=== PATIENT | male | born 1960 | race Caucasian/White ===

== ENCOUNTER 2019-05-25 06:03 | Inpatient (IN) | payer OTHER, SELFPAY ==
[2019-05-21 09:55] VITALS: BMI 31.2
[2019-05-25] VITALS (21 sets, daily range): BP systolic 98–135; BP diastolic 49–87; PULSE 62–124; RESP 8–20; TEMP 36.6–37.3; O2SAT 94–98; BMI 30.4
--- NOTE | 2019-05-25 | DI.RAD.S_ITS ---
PROCEDURE: XR LUMBAR SPINE 2-3V INDICATIONS: L3-4, L4-5, L5-S1 TLIF W/ POSTERIOR INSTRUMENTATION TECHNIQUE: 2 operative views of the lumbar spine were acquired. COMPARISON: None. FINDINGS: AP and lateral operative films demonstrate posterior o the pedicles grew fixation and interbody cage material placement at L3-S1. There is no radiographic evidence of complications. IMPRESSION: Operative imaging utilized during lumbar fixation. Dictated by: Eddie Wang M.D. on 05/25/2019 at 12:54 Approved by: Eddie Wang M.D. on 05/25/2019 at 13:00
[2019-05-25] MEDS: LACTATED RINGERS 1,000 ML 42 ML IV ×3 (06:50→11:12)
--- NOTE | 2019-05-25 07:43 | PM.PREOP ---
Pre-operative Note Interval Note History & Physical reviewed/Exam performed by Physician: Yes Changes to H&P: No
[2019-05-25] MEDS: CEFAZOLIN 2 GM/100 ML FROZ.PIGGY IV ×3 (07:55→19:14)
[2019-05-25] MEDS: BUPIVACAINE 0.25% W/ EPI 30 ML VIAL INJ (08:30)
[2019-05-25] MEDS: BUPIVACAINE LIPOSOME 266 MG/20 ML VIAL INJ (08:32)
--- NOTE | 2019-05-25 08:35 | SUR.OPER ---
Prone on spine table, head in foam head support, padded chest and pelvic supports, gel pad at knees, lower legs supported by pillows; nipples, genitalia and toes free of pressure, arms secured on foam padded arm boards at <90 degrees abduction. Tape over blanket at thigh secured to table.
--- NOTE | 2019-05-25 13:01 | PM.OP.1 ---
Operative Date/Time/Diagnoses Date of procedure: 05/25/19 Time of procedure: 08:01 Pre-op diagnosis: 1. L3-4, L4-5, L5-S1 spinal stenosis 2. Lumbar post laminectomy syndrome 3. L3-4, L4-5, L5-S1 spondylosis with radiculopathy Post-op diagnosis: same Procedure & Clinicians Procedure: 1. L3-4, L4-5, L5-S1 Postero-lateral and posterior interbody fusion 2. L3-4, L4-5, L5-S1 interbody cage placement. 3. L3-4, L4-5, L5-S1 decompressive laminectomy with bilateral facetecomies 4. L3-4, L4-5, L5-S1 Posterior segmental instrumentation 5. [place] of bone marrow from iliac crest 6. Utilization of microsurgical technique and operating microscope Same procedure as scheduled: Yes Indications: Patient has been having chronic back pain and worsening lumbar radiculopathy. Patient failed multiple conservative management with worsening pain weakness and numbness in her lower extremity. Patient has been having difficulty performing activity of daily living. After discussing risks benefits of treatment options, patient elected proceed with surgery. Surgeon: Monserrat Srivastava [facility] Housekeeper: Lynette Velasquez Click Yes if Unassisted: No Anesthesia Type: General Operative Notes Closure Type: primary Specimen(s): none sent Prosthetic devices, grafts, tissues, transplants, or devices: Globus revolve, Rise cages Applied: catheter Estimated Blood Loss (mL): 600 Blood products transfused: none Procedure in detail: Patient was seen in the preoperative area. Risks and benefits of the surgery was discussed with the patient. Informed consent was obtained from the patient and placed in the chart. Surgical site was marked. Patient was taken to the operative room. General anesthesia was administered. Prophylactic antibiotic was given to the patient less than 30 min before the incision was made. Patient was placed into a prone position on the [place] table. Patient's back was then prepped and draped in the sterile fashion. Time-out was performed at this time. Using AP and lateral C-arm imaging the interval between L3-S1 was identified and marked on patient's back. A 3 inch incision 2 in from midline was made on the right side first. The fascia was incised in line with skin incision. Globus MARS retractors was placed inside the incision and docked onto the L3, L4 and L5 lamina. Using microsurgical technique and operating microscope, a L3, L4 and L5 laminectomy and L3-4, L4-5 L5-S1 facetectomy was performed using a [place] rongeur. The disc space at L3-4, L4-5, L5-S1 was identified. And a total diskectomy was performed at L3-4, L4-5, L5-S1 level. The endplates were decorticated using a rasp and shaver. The total diskectomy and decortication was performed at L3-4, L4-5, L5-S1 level in order to to accomplish a L3-4, L4-5, L5-S1 fusion. The local bone from the laminectomy and facetectomy was saved for local bone grafting. After the total diskectomy and decortication was completed, Bio4 bone graft material was combined with local bone that was harvested earlier. At this time, a separate skin is incision was made over the iliac crest. A Jamshidi needle was inserted into the iliac crest through a separate skin incision. 5 cc of bone marrow aspiration was obtained through the separate skin incision using a Jamshidi needle from the iliac crest. The bone marrow aspiration was combined with local bone and the Bio4 bone grafting material. The bone grafting material was placed into the L3-4, L4-5, L5-S1 interbody space along with three cages, one expandable cage at each level. The cages were expanded to their maximum height using the torque limiting screwdriver. At this time a mirror image incision was made on the left side. The fascia was incised in line with the skin incision. Globus MARS retractor was inserted and docked onto the L3-4, L4-5, L5-S1 posterolateral gutter. Using the power drill, posterior-lateral decortication was performed at L3-4, L4-5, L5-S1 level until bleeding cortical bone was identified. The remaining bone grafting material along with DBM was placed into the L3-4, L4-5 L5-S1 posterior lateral gutter he order to accomplish posterolateral fusion at the L3-4, L4-5 L5-S1 levels. Using the double C-arm technique, pedicle screws were placed into the L3, L4, L5, S1 pedicles bilaterally. This was done by placing the Jamshidi needle into the pedicles, then placing the guidewires over the Jamshidi needle, and finally placing the cannulated screws over the guidewires bilaterally. After the pedicle screws were placed, 2 titanium rods was locked into the heads of the pedicle screws using locking caps and torque limiting screwdriver. Total 8 pedicles screws were placed. After all the hardware was placed, and confirmed with AP and lateral C-arm imaging, the wound was then irrigated with sterile normal saline and packed with Ray-Sonia gauze for 3 min to accomplish hemostasis. After the gauze was removed the deep fascia was closed with #1 Vicryl suture. The subcutaneous layer was closed with 2-0 Vicryl. The skin was closed with skin alec. Patient tolerated the procedure well. There were no complications. Complications: none Post-operative Condition: stable Disposition: PACU Plan for aftercare: Admit to inpatient hospital
[2019-05-25] MEDS: HYDROMORPHONE 2 MG INJ 0.5 MG IV ×3 (13:33→13:56)
--- NOTE | 2019-05-25 13:47 | SUR.PHASEI ---
1333 Rx for pain, elevated heart rate and glucose reported to Dr. Dias -- stated to continue treating pain, will observe glucose, no orders to treat. Pt. trying to sit up, complaining of I need to pee repeatedly. Good LE strength, moving in bed, frequent reminders to keep body in alignment and not to twist. Put on bedpan for need to have a BM
--- NOTE | 2019-05-25 13:54 | SUR.PHASEI ---
No BM, removed bedpan, repositioned in the bed. Pain level has improved, would like more pain control
[2019-05-25] MEDS: LORazepam 2 MG/ML INJ 0.25 MG IV (13:59)
[2019-05-25] MEDS: fentaNYL 100 MCG/2 ML INJ 50 MCG IV (14:21)
[2019-05-25] MEDS: ONDANSETRON 4 MG/2 ML INJ IV (14:21)
--- NOTE | 2019-05-25 14:37 | SUR.PHASEI ---
Pt resting calmly, oriented, diaphoresis/cool washcloth to the head. C/o numbness in right foot, which was reported pre-op. Pt states that the numbness is about equal to what he had pre-op. Denies any pain other than back and irritation from jenkins catheter. He has maintained this throughout his awake PACU stay. See emar for nausea Rx, states that his nausea has improved significantly. Pain currently 5-6/10
--- NOTE | 2019-05-25 15:12 | SUR.PHASEI ---
1440 Pain improving although patient wishes that it were less, understands that he had a big surgery and that he will have pain, pleasant, cooperative, appreciative. diaphoretic, denies any chest pain/pressure period of diaphoresis, states that he 'runs warm.' Cool washclothes have helped his comfort level. Dressing remains CDI, Stable to prepare for transfer.
--- NOTE | 2019-05-25 15:14 | SUR.PHASEI ---
4850 to room 204, family in the room, pt talking/joking with them. Clothing bag to room, report updated with 2 RNs and ASSISTANT BRANCH MANAGER. VSS. Pt asking for jenkins to come out; nurse explained that she will have PT eval whether he can be out of bed and that he may need to use a urinal.
[2019-05-25] MEDS: OXYCODONE IR 10 MG TABLET PO ×2 (16:03→20:29)
[2019-05-25] MEDS: SODIUM CHLORIDE 0.9% 1,000 ML 100 ML IV (16:04)
--- NOTE | 2019-05-25 16:33 | PC.ADMIT ---
Admitted to , arrived on the unit via bed from PACU. Pain 03/05, shift RN medicated. Dick patent. IV fluids setup and infusing w/o complications. Has history of right foot drop. Physical therapy in room assessing patient and stood him up to bedside. Oriented to room/call light use. Bed alarm on, moderate fall risk. Family present at bedside. Home medications sent home with family member. [address] Admission Note: The patient,Claus Palma,58 y/o, was given written information regarding hospital policies, unit procedures and contact persons. Patient's smoking status: Former smoker. Vital Signs - 8 hr 05/25/19 13:06 05/25/19 13:12 05/25/19 13:20 Temperature 97.9 F Pulse Rate 99 H 118 H 124 H Respiratory Rate 14 13 14 Blood Pressure 122/67 131/72 98/63 Pulse Oximetry 94 95 95 05/25/19 13:25 05/25/19 13:30 05/25/19 13:35 Temperature Pulse Rate 116 H 123 H 110 H Respiratory Rate 8 L 14 9 L Blood Pressure 110/67 110/53 L 109/68 Pulse Oximetry 97 98 97 05/25/19 13:45 05/25/19 14:15 05/25/19 14:30 Temperature Pulse Rate 113 H 103 H 99 H Respiratory Rate 13 11 L 9 L Blood Pressure 104/54 L 114/71 114/67 Pulse Oximetry 95 94 97 05/25/19 14:45 05/25/19 14:55 05/25/19 15:05 Temperature 98.7 F Pulse Rate 98 H 96 H 99 H Respiratory Rate 11 L 14 20 Blood Pressure 118/72 119/73 117/49 L Pulse Oximetry 96 98 95 05/25/19 15:40 05/25/19 16:06 Temperature 98.9 F Pulse Rate 91 H 88 Respiratory Rate 19 18 Blood Pressure 129/82 122/69 Pulse Oximetry 95 97
--- NOTE | 2019-05-25 16:58 | PT.IIE ---
Current Diagnoses Foot drop, right foot (05/25/19) Spinal stenosis, lumbar region without neurogenic claudication (05/25/19) Postlaminectomy syndrome, not elsewhere classified (05/25/19) Surgery Performed Operation Date: 05/25/19 07:45 Actual Procedures p L3-4,L4-5,L5-S1 TLIF with posterior intrumentation - Monserrat Srivastava MD Surgical History (Last Updated 05/21/19 @ 10:38 by Kerry Ledbetter RN) Hx of discectomy (Acute 11/19/14) Hx of discectomy (Acute ~2001) Hx of right knee surgery (Acute ~1988) Medical History (Last Updated 05/21/19 @ 10:38 by Kerry Ledbetter RN) Anxiety (Acute) Arthritis (Acute) Diabetes (Acute) HLD (hyperlipidemia) (Acute) HTN (hypertension) (Acute) Neuropathy (Acute) Psoriasis (Acute) Sciatica (Acute) Physical Therapy Inpatient Evaluation/Re-Eval M1 PT/OT-IP Prior Functional Status Start: 05/25/19 16:58 Freq: NEEDED Status: Active Protocol: Document 05/25/19 16:58 DLM (Rec: 05/25/19 17:12 DLM [email or web address]) Medical Review Prior Functional Status Medical History Reviewed Yes Diet/Fluid Consistency Regular Communication WNL Mobility and Gait Independent without a device, community distances, occasional use of a cane when back pain or LE was too severe before sx Activities of Daily Living and IADL's Independent Social History Household Members spouse Living Arrangements House Number of Floors (Floors) One Floor Number of Stairs To Enter/Railing? 4 with bilateral rails Home Environment Standard Height Toilet,Walk in Shower,Tub/Shower Home Equipment Straight Cane M2 PT-IP Current Condition Start: 05/25/19 16:58 Freq: NEEDED Status: Active Protocol: Document 05/25/19 16:58 DLM (Rec: 05/25/19 17:12 DLM [email or web address]) Physical Therapy Current Condition Current Condition Evaluation Date 05/25/19 Treatment Diagnosis L3-S1 TLIF, right foot drop, impaired mobility/gait Onset Date 05/25/19 Precautions Lumbar Precautions Log Roll,No Twisting,Limit Bending,Lifting Restriction of 10 lbs,Gait Belt above Incisional Area M3 PT-IP Subjective Start: 05/25/19 16:58 Freq: NEEDED Status: Active Protocol: Document 05/25/19 16:58 DLM (Rec: 05/25/19 17:12 DLM [email or web address]) Subjective Physical Therapy Visit Type Type Initial Evaluation Visit Start Time 16:15 Visit Stop Time 16:58 Total Visit Minutes 43 Number of STAFF RADIOLOGIST Visits 0 Physical Therapy Visit Comments Patient Comments He wants to get up and he does not like the catheter Patient Goals get better so he can go home Therapy Pain Assessment Pain When Pain Assessed At Rest Pain Present Pain Present Pain Reported Location Lower Back Intensity 4 Scale Used Numeric (1 - 10) Description Aching Pain Behaviors Guarding Pain Management Techniques Re-positioning M4 PT-IP Mobility and Gait Start: 05/25/19 16:58 Freq: NEEDED Status: Active Protocol: Document 05/25/19 16:58 DLM (Rec: 05/25/19 17:12 DL [email or web address]) PT-Bed Mobility Assessment Rolling Type of Rolling Log Rolling Level of Assist Standby Assistance Supine to Sit Supine to Sit Standby Assistance Sit to Supine Sit to Supine Standby Assistance Scooting Scooting to Edge of Bed Standby Assistance PT-Transfer Assessment Sit to and From Stand Sit to and from Stand Contact Guard Assistance,Use of Upper Extremities Equipment Transfer Assistive Device Gait Belt,Front Wheeled Walker Comments Mobility Comments standing at edge of bed with FWW, he describes right LE as feeling weak Gait Assessment Gait Gait Assistance Required: Contact Guard Assist Distance (Feet) 2 Assistive Devices Assistive Device Gait Belt,Front Wheeled Walker Factors Limiting Gait Function Factors Limiting Gait Function Decreased Activity Tolerance, Decreased Strength,Pain Comments Gait Comments side-stepping at edge of bed with fWW PT-Balance Assessment Sitting Balance and Reactions Static Sitting Balance Ability Good Dynamic Sitting Balance Ability Good Standing Balance and Reactions Static Standing Balance Ability Good Dynamic Standing Balance Ability Fair Device Used FWW M5 PT-IP Objective Assessments Start: 05/25/19 16:58 Freq: NEEDED Status: Active Protocol: Document 05/25/19 16:58 DLM (Rec: 05/25/19 17:12 DLM [email or web address]) Orientation Orientation/Cognition Level of Alertness Alert Orientation Name,Age,Birthday,Month,Date, Year,Day of Week,Place, Situation Language Function Ability No Deficits Noted Safety Awareness Understands Safety Issues Memory Description No Deficits Noted Gross Range of Motion Upper Extremity ROM Assessment Within Functional Limits Lower Extremity ROM Assessment Within Functional Limits Impairments trunk ROM limited by post-op restrictions and pain Strength Upper Extremity Strength Assessment Within Functional Limits Lower Extremity Strength Assessment Right Impaired Ankle DF 2+/5 Comments Strength Comments pt reports right LE weakness with weight bearing Coordination Assessment Gross Coordination Gross Coordination WNL Sensation Assessment Sensation Gross Sensation Right LE Impaired Sensation Description Numbness Comments Sensation Comments right foot, right lateral distal LE up to knee Muscle Tone Muscle Tone WNL Yes M6 PT-IP Treatment Start: 05/25/19 16:58 Freq: NEEDED Status: Active Protocol: Document 05/25/19 16:58 DLM (Rec: 05/25/19 17:12 DLM [email or web address]) Physical Therapy Treatment Education Education Provided Precautions,Post-Op Packet, Safety M7 PT-IP Assessment and Plan Start: 05/25/19 16:58 Freq: NEEDED Status: Active Protocol: Document 05/25/19 16:58 DLM (Rec: 05/25/19 17:12 DLM [email or web address]) PT Summary Assessment and Plan Potential Rehabilitation Potential Good Status of Condition at Evaluation Evolving Summary Impairments Pain,ROM,Strength,Balance,Bed Mobility,Transfers,Gait, Activity Tolerance Assessment Summary Mr Palma is alert and eager to get up today. Pt stood edge of bed with fWW and took side- steps at edge of bed. He describes right LE weakness in standing. Right foot drop continues post-op. Pt educated in his spine precautions and he needs reminders to use them functionally. Pt returned to supine to rest after activity today. His is present for therapy today. Anticipate pt will need equipment for home use to assist in his recovery. Will plan for discharge home with his if he continues to progress well. Goals Bed Mobility Goal Independent Transfer Goal Independent,Front Wheeled Walker Gait Goal Independent,Front Wheel Walker Gait Distance 100 feet Other Goals up and down 4 steps with rail and cane and SBA Days to Meet Goals 3 Frequency of Treatment Frequency Of Treatment Twice a Day Treatment Plan Physical Therapy Treatment Plan Bed Mobility Training,Transfer Training,Gait Training, Therapeutic Exercise,Balance Retraining,Post Op Education, Discharge Planning Recommendations To Nursing Amount of Assist Needed 1 Person Assist Discharge Recommendations PT Discharge Recommendations Home with Assistance Equipment Needed for Home Before FWW, raised commode with UE Discharge rails, shower seat or tub bench
[2019-05-25] MEDS: hydrOXYzine pamoate 25 MG CAPSULE PO ×2 (17:16→22:06)
[2019-05-25] MEDS: HYDROMORPHONE 0.5 MG INJ IV (17:16)
[2019-05-25] MEDS: ACETAMINOPHEN 325 MG TABLET 650 MG PO (17:17)
[2019-05-25] MEDS: NICOTINE 21 MG PATCH TOP (17:59)
[2019-05-25] MEDS: CITALOPRAM 20 MG TABLET 40 MG PO (20:23)
[2019-05-25] MEDS: ATORVASTATIN 20 MG TABLET PO (20:26)
[2019-05-25] MEDS: DOCUSATE 100 MG CAPSULE PO (20:26)
[2019-05-25] MEDS: SENNOSIDES 8.6 MG TABLET 17.2 MG PO (20:26)
[2019-05-25] MEDS: LISINOPRIL 10 MG TABLET PO (20:26)
[2019-05-25] MEDS: METOPROLOL ER 50 MG TABLET PO (20:26)
[2019-05-25] MEDS: METFORMIN HCL 500 MG TABLET 1000 MG PO (20:29)
[2019-05-25] MEDS: NORTRIPTYLINE HCL 25 MG CAPSULE 50 MG PO (20:34)
--- NOTE | 2019-05-25 21:52 | PC.NURSE ---
Pt is A and O x 4, VSS. He reports his pain to be 4-8/10, requesting pain medications as available. Pt is eating and drinking, + BT and voiding clear yellow into catheter. Tolerating IVF and ABOs well. SCDs on.
[2019-05-26] VITALS (8 sets, daily range): BP systolic 106–146; BP diastolic 61–74; PULSE 76–83; RESP 16–20; TEMP 36.6–37.3; O2SAT 96–99
[2019-05-26] MEDS: OXYCODONE IR 10 MG TABLET PO ×7 (00:44→23:41)
[2019-05-26] MEDS: hydrOXYzine pamoate 25 MG CAPSULE PO ×4 (01:31→23:41)
[2019-05-26] MEDS: HYDROMORPHONE 0.5 MG INJ IV ×2 (01:31→06:05)
--- NOTE | 2019-05-26 01:32 | PC.NURSE ---
Patient is grimacing, unable to move, swearing and reporting pain in his back at an 8 (post 10 mg Oxy). Will administer PRN Dilaudid 0.5mg IV and hydrooxyzine pamoate 25 mg PO and continue to monitor.
[2019-05-26] MEDS: CEFAZOLIN 2 GM/100 ML FROZ.PIGGY IV (04:03)
[2019-05-26 05:44] LABS: Hematocrit 32.3 % (41-53)
--- NOTE | 2019-05-26 09:10 | CM.DANOTE ---
DCP: Case received, EMR reviewed and met with patient. Introduced self and role. Was able to meet with patient and obtain baseline health information. DCP assessment/template completed with information currently available. Patient is a 58 year old male who admitted yesterday afternoon to the care of the orthopedic team. PCP: Dr. Cardenas. Payer: confirmed: [employer]. Patient came to the hospital for a surgical procedure. He had L3-4, 4-5, 5-S1 postero-lateral fusion. Met with patient in his room, awake and laying in bed. Alert and oriented. He resides with his , Jamila, and also has family available to help him when he goes home. Confirmed that Jamila is his of 20 years. He has been using a cane for home use when needed. He used to work at [employer]. Patient has not yet been up with P.T. P: DCP to continue to follow. Patient wishes to go home when he is medically stable. Will see how he does with the physical therapy team. Kim Ye RN/Topology Teacher
--- NOTE | 2019-05-26 09:16 | P.PN_ITS ---
Subjective Subjective Date Patient Seen: 05/26/19 Time Patient Seen: 09:16 Interval history: Patient's pain is moderate to severe. Patient's pain is well controlled with current meds. Denies fever chills. No nausea vomiting. Exam Vital Signs (past 8 hours): - 05/26/19 03:28 05/26/19 08:00 Temperature 98.5 F 98.9 F Pulse Rate 80 76 Respiratory Rate 16 18 Blood Pressure 107/72 117/62 Pulse Oximetry 98 99 Oxygen Delivery Method Room Air Oxygen Flow Rate 0 Narrative Exam Narrative: Pleasant 58-year-old male resting comfortably in bed in no apparent distress. Motor functions intact bilateral lower extremities. Sensation mildly diminished along the right lateral foot and cedillo otherwise intact to light touch. Sensation grossly intact to light touch left lower extre mity. Both legs are warm and dry. Minimal drainage on the left dressing otherwise both dressings are clean dry and intact. Objective Labs Result Diagrams: 05/26/19 05:20 Labs: Laboratory Results - last 24 hr 05/26/19 05:20 Hgb 11.0 L Hct 32.3 L Assessment & Plan Post-op Postoperative Procedures: Procedures Operation Date: 05/25/19 07:45 Actual Procedures Side Surgeon p L3-4,L4-5,L5-S1 TLIF with posterior intrumentation Monserrat Srivastava MD Postop day 1. Patient to mobilize with physical therapy. Continue to work on pain control. Possible discharge home in the next 1-2 days.
[2019-05-26] MEDS: DOCUSATE 100 MG CAPSULE PO ×2 (09:23→21:09)
[2019-05-26] MEDS: MAGNESIUM HYDROXIDE 30 ML UDC PO (09:24)
[2019-05-26] MEDS: NICOTINE 21 MG PATCH TOP (10:12)
--- NOTE | 2019-05-26 11:20 | PT.IPTN ---
Current Diagnoses Foot drop, right foot (05/25/19) Spinal stenosis, lumbar region without neurogenic claudication (05/25/19) Postlaminectomy syndrome, not elsewhere classified (05/25/19) Surgery Performed Operation Date: 05/25/19 07:45 Actual Procedures p L3-4,L4-5,L5-S1 TLIF with posterior intrumentation - Monserrat Srivastava MD Physical Therapy Treatment Note M2 PT-IP Current Condition Start: 05/25/19 16:58 Freq: NEEDED Status: Active Protocol: Document 05/25/19 16:58 DLM (Rec: 05/25/19 17:12 DLM [email or web address]) Physical Therapy Current Condition Current Condition Evaluation Date 05/25/19 Treatment Diagnosis L3-S1 TLIF, right foot drop, impaired mobility/gait Onset Date 05/25/19 Precautions Lumbar Precautions Log Roll,No Twisting,Limit Bending,Lifting Restriction of 10 lbs,Gait Belt above Incisional Area M3 PT-IP Subjective Start: 05/25/19 16:58 Freq: NEEDED Status: Active Protocol: Document 05/26/19 11:20 GGD (Rec: 05/26/19 12:20 GGD [email or web address]) Subjective Physical Therapy Visit Type Type Treatment Note Visit Start Time 10:57 Visit Stop Time 11:22 Total Visit Minutes 25 Number of REFRACTORY MIXER Visits 1 Physical Therapy Visit Comments Patient Comments Pt states he is tired after all the activity this morning. Therapy Pain Assessment Pain When Pain Assessed At Rest Pain Present Pain Present Pain Reported Location Lower Back Intensity 6 Scale Used Numeric (1 - 10) Pain Management Techniques Modification of Treatment,Re- positioning,Timing of Activity with Medications M4 PT-IP Mobility and Gait Start: 05/25/19 16:58 Freq: NEEDED Status: Active Protocol: Document 05/26/19 11:20 GGD (Rec: 05/26/19 12:20 GGD [email or web address]) PT-Bed Mobility Assessment Rolling Type of Rolling Log Rolling Level of Assist Standby Assistance Sit to Supine Sit to Supine Standby Assistance Scooting Scooting to Edge of Bed Standby Assistance PT-Transfer Assessment Sit to and From Stand Sit to and from Stand Contact Guard Assistance,Use of Upper Extremities Equipment Transfer Assistive Device Gait Belt,Front Wheeled Walker Transfers Transfer Destination Bed Gait Assessment Gait Gait Assistance Required: Contact Guard Assist Distance (Feet) 120 Assistive Devices Assistive Device Gait Belt,Front Wheeled Walker Factors Limiting Gait Function Factors Limiting Gait Function Decreased Activity Tolerance, Decreased Strength,Pain M5 PT-IP Objective Assessments Start: 05/25/19 16:58 Freq: NEEDED Status: Active Protocol: Document 05/25/19 16:58 DLM (Rec: 05/25/19 17:12 DLM [email or web address]) Orientation Orientation/Cognition Level of Alertness Alert Orientation Name,Age,Birthday,Month,Date, Year,Day of Week,Place, Situation Language Function Ability No Deficits Noted Safety Awareness Understands Safety Issues Memory Description No Deficits Noted Gross Range of Motion Upper Extremity ROM Assessment Within Functional Limits Lower Extremity ROM Assessment Within Functional Limits Impairments trunk ROM limited by post-op restrictions and pain Strength Upper Extremity Strength Assessment Within Functional Limits Lower Extremity Strength Assessment Right Impaired Ankle DF 2+/5 Comments Strength Comments pt reports right LE weakness with weight bearing Coordination Assessment Gross Coordination Gross Coordination WNL Sensation Assessment Sensation Gross Sensation Right LE Impaired Sensation Description Numbness Comments Sensation Comments right foot, right lateral distal LE up to knee Muscle Tone Muscle Tone WNL Yes M6 PT-IP Treatment Start: 05/25/19 16:58 Freq: NEEDED Status: Active Protocol: Document 05/26/19 11:20 GGD (Rec: 05/26/19 12:20 GGD [email or web address]) Physical Therapy Treatment Education Education Provided Precautions,Safety M7 PT-IP Assessment and Plan Start: 05/25/19 16:58 Freq: NEEDED Status: Active Protocol: Document 05/26/19 11:20 GGD (Rec: 05/26/19 12:20 GGD [email or web address]) PT Summary Assessment and Plan Summary Assessment Summary Pt improving with mobility. He need cues for sit to stand. He was able to progress gait. He needed standing rest break during gait. Pt plans and D/C home when medically stable. Frequency of Treatment Frequency Of Treatment Twice a Day Treatment Plan Physical Therapy Treatment Plan Bed Mobility Training,Transfer Training,Gait Training, Therapeutic Exercise,Balance Retraining,Post Op Education, Discharge Planning Recommendations To Nursing Amount of Assist Needed 1 Person Assist Discharge Recommendations PT Discharge Recommendations Home with Assistance Equipment Needed for Home Before FWW, raised commode with UE Discharge rails, shower seat or tub bench
--- NOTE | 2019-05-26 12:39 | OT.IP.EVAL ---
Current Diagnoses Foot drop, right foot (05/25/19) Spinal stenosis, lumbar region without neurogenic claudication (05/25/19) Postlaminectomy syndrome, not elsewhere classified (05/25/19) Surgery Performed Operation Date: 05/25/19 07:45 Actual Procedures p L3-4,L4-5,L5-S1 TLIF with posterior intrumentation - Monserrat Srivastava MD Past Medical History (Last Updated 05/21/19 @ 10:38 by Kerry Ledbetter RN) Anxiety (Acute) Arthritis (Acute) Diabetes (Acute) HLD (hyperlipidemia) (Acute) HTN (hypertension) (Acute) Neuropathy (Acute) Psoriasis (Acute) Sciatica (Acute) Surgical History (Last Updated 05/21/19 @ 10:38 by Kerry Ledbetter RN) Hx of discectomy (Acute 11/19/14) Hx of discectomy (Acute ~2001) Hx of right knee surgery (Acute ~1988) Occupational Therapy Inpatient Evaluation/Re-Eval M1 PT/OT-IP Prior Functional Status Start: 05/25/19 16:58 Freq: NEEDED Status: Active Protocol: Document 05/26/19 12:25 CGR (Rec: 05/26/19 12:39 CGR [email or web address]) Medical Review Prior Functional Status Medical History Reviewed Yes Diet/Fluid Consistency Regular Communication WNL Mobility and Gait Independent without a device, community distances, occasional use of a cane when back pain or LE was too severe before sx Activities of Daily Living and IADL's Independent Social History Household Members spouse Living Arrangements House Number of Floors (Floors) One Floor Number of Stairs To Enter/Railing? 5 stairs to backdoor with B railing 7 stairs to front door with B railing Home Environment Standard Height Toilet,Walk in Shower,Tub/Shower Home Equipment Straight Cane,Shower Seat without Backrest Employment Status [employer] Employed Additional Social History Comment Pt states that his shower chair denzel won't fit in his shower stall. M2 OT-IP Current Condition Start: 05/26/19 12:25 Freq: Status: Active Protocol: Document 05/26/19 12:25 CGR (Rec: 05/26/19 12:39 CGR [email or web address]) Occupational Therapy Current Condition Current Condition Evaluation Date 05/26/19 Treatment Diagnosis L3-S1 TLIF Post Operative Precautions Lumbar Precautions Log Roll,No Twisting,Limit Bending,Lifting Restriction of 10 lbs,Gait Belt above Incisional Area M3 OT- IP Subjective and Pain Start: 05/26/19 12:25 Freq: Status: Active Protocol: Document 05/26/19 12:25 CGR (Rec: 05/26/19 12:39 CGR [email or web address]) OT- Subjective Occupational Therapy Visit Type Type Initial Evaluation Visit Start Time 10:15 Visit Stop Time 11:04 Total Visit Minutes 49 Occupational Therapy Visit Comments Patient Comments I am hoping to be back to walking around normally within 2 weeks. OT Pain Assessment Pain When Pain Assessed At Rest Pain Present Pain Present Pain Reported Location Lower Back Intensity 7 Scale Used Numeric (1 - 10) Management Techniques Distraction,Timing of Activity with Medications M4 OT- IP ADL's Start: 05/26/19 12:25 Freq: Status: Active Protocol: Document 05/26/19 12:25 CGR (Rec: 05/26/19 12:39 CGR [email or web address]) OT [facility] Comments OT Self-Feeding Comments not meal time OT ADL-Grooming General Evaluation Grooming Ability Independent Areas Needing Assistance Retrieving/Set-up of Grooming Items,Face Washing Comments OT Grooming Comments standing at sink OT ADL-Oral Care General Eval Oral Care Ability Independent Areas of Assistance Brushing Teeth Comments Oral Care Comments standing at sink OT ADL-Dressing General Eval Lower Body Dressing Ability Standby Assistance Areas Needing Assistance Underpants/Brief Assistive Devices Dressing Assistive Devices Dressing Stick,See Wheeler Comments OT Dressing Comments Pt educated on dressing but only performed threading of underwear seated in chair. Pt still with jenkins and requests to remove LB dressing. OT ADL-Toileting General Evaluation Toileting Ability Independent Comments OT Toileting Comments Pt attempted to have BM seated on toilet but unable. OT ADL-Bathing Comments OT Bathing Comments Not performed on this date M5 OT- IP IADL's Start: 05/26/19 12:25 Freq: Status: Active Protocol: Document 05/26/19 12:25 CGR (Rec: 05/26/19 12:39 CGR [email or web address]) OT-Instrumental Activities of Daily Living Deficits IADL Deficits Identified No Deficits Home Safety Awareness Awareness of Need for Assistance at Home Good Awareness Ability to Problem Solve Emergency Able to Problem Solve Situations M6 OT- IP Functional Cognition Start: 05/26/19 12:25 Freq: Status: Active Protocol: Document 05/26/19 12:25 CGR (Rec: 05/26/19 12:39 CGR [email or web address]) Cognitive Factors Limiting Selfcare Function Cognitive Ability Level of Alertness Alert Patient Orientation Name,Age,Birthday,Month,Date, Year,Day of Week,Place, Situation Attention Span Ability Capable of Focused Attention, Capable of Sustained Attention Ability to Follow Commands Able to Follow One Step Commands Memory Description No Deficits Noted Safety Awareness No Deficits Noted Problem Solving Ability No deficits Noted Executive Function Ability No Deficits Noted Abstract Thinking Ability No Deficits Noted OT- Vision and Hearing OT- Hearing Assessment OT- Hearing Assessment WFL OT- Vision Assessment Visual Acuity WFL,Glasses For Reading Visual Attentiveness WFL Occular Pursuits WFL Visual Convergence WFL Visual Ledezma WFL M7 OT- IP Mobility and Balance Start: 05/26/19 12:25 Freq: Status: Active Protocol: Document 05/26/19 12:25 CGR (Rec: 05/26/19 12:39 CGR [email or web address]) OT- Bed Mobility Assessment Rolling Type of Rolling Roll to Left Level of Assistance Standby Assistance,Bedrails Supine to Sit Supine to Sit Assist Standby Assistance,Bedrails Scooting Scooting to Edge of Bed Independent OT-Transfer Assessment Sit to and From Stand Sit to and from Stand Contact Guard Assistance Transfers Transfer Ability Contact Guard Assistance Technique Transfer Destination Bed,Chair,Toilet Transfer Technique Stand Step Pivot Devices Transfer Assistive Devices Bed Rail,Gait Belt,Front Wheeled Walker OT- Gait Assessment Gait Gait Assistance Required: Contact Guard Assist Assistive Devices Assistive Device Gait Belt,Front Wheeled Walker OT- Balance Assessment Sitting Balance and Reactions Static Sitting Balance Ability Normal Dynamic Sitting Balance Ability Fair M8 OT- IP Objective Assessments Start: 05/26/19 12:25 Freq: Status: Active Protocol: Document 05/26/19 12:25 CGR (Rec: 05/26/19 12:39 CGR [email or web address]) OT Gross Range of Motion Upper Extremity Range of Motion Assessment Within Functional Limits OT Strength Upper Extremity Strength Assessment Within Functional Limits OT- Coordination Assessment Upper Extremity Finger to Nose Test Within Functional Limits Finger Tapping Test Within Functional Limits OT-Muscle Tone Assessment Muscle Tone WNL Yes OT Sensation Assessment Edema Edema Absent M9 OT- IP Assessment and Plan Start: 05/26/19 12:25 Freq: Status: Active Protocol: Document 05/26/19 12:25 CGR (Rec: 05/26/19 12:39 CGR [email or web address]) OT Summary Assessment and Plan Potential Rehabilitation Potential Excellent Analytic Complexity at Evaluation Low Summary OT Impairments Functional Mobility,Grooming, Dressing,Toileting,Bathing, Toilet Transfers,Shower Transfers Progress Towards Goals Slow Progress due to Pain Assessment Summary Pt presents s/p L3-S1 TLIF. Pt with significant chavez s/p sx but is able to participated in therapy at this time. Pt will benefit from having a hip kit , bedrail, shower chair, and toilet heightner with arm rails. Pt is likely to progress quickly with therapy services and be ready for d/c soon. Recommend d/c to home with family support. Goals Dressing Goal Independent,Dressing Stick, Long Handled Shoe Horn,See Wheeler ,Sock Aid Toileting Goal Independent Bathing Goal Independent Toilet Transfer Goal Independent,Raised Toilet Seat With Rails Shower Transfer Goal Independent,Walk-in Shower, Shower Chair Frequency of Treatment Frequency Of Treatment Once a Day Treatment Plan OT Treatment Plan ADL Training,Functional Mobility,Patient/Family Education,Discharge Planning Other Treatment Recommendations and Next Shower and full body dressing Treatment Focus using DME at next session. Discharge Recommendations OT Discharge Recommendations Home with Assistance Home Equipment Needs Bedrail, hip kit with dressing stick, shower chair, toilet heightner with arm rests
--- NOTE | 2019-05-26 14:15 | PT.IPTN ---
Current Diagnoses Foot drop, right foot (05/25/19) Spinal stenosis, lumbar region without neurogenic claudication (05/25/19) Postlaminectomy syndrome, not elsewhere classified (05/25/19) Surgery Performed Operation Date: 05/25/19 07:45 Actual Procedures p L3-4,L4-5,L5-S1 TLIF with posterior intrumentation - Monserrat Srivastava MD Physical Therapy Treatment Note M2 PT-IP Current Condition Start: 05/25/19 16:58 Freq: NEEDED Status: Active Protocol: Document 05/25/19 16:58 DLM (Rec: 05/25/19 17:12 DLM [email or web address]) Physical Therapy Current Condition Current Condition Evaluation Date 05/25/19 Treatment Diagnosis L3-S1 TLIF, right foot drop, impaired mobility/gait Onset Date 05/25/19 Precautions Lumbar Precautions Log Roll,No Twisting,Limit Bending,Lifting Restriction of 10 lbs,Gait Belt above Incisional Area M3 PT-IP Subjective Start: 05/25/19 16:58 Freq: NEEDED Status: Active Protocol: Document 05/26/19 14:15 GGD (Rec: 05/26/19 15:22 GGD [email or web address]) Subjective Physical Therapy Visit Type Type Treatment Note Visit Start Time 13:45 Visit Stop Time 14:15 Total Visit Minutes 30 Number of CAT TENDER Visits 2 Physical Therapy Visit Comments Patient Comments Pt willing to work with therapy. Therapy Pain Assessment Pain When Pain Assessed During Mobility Pain Present Pain Present Pain Reported Location Lower Back Intensity 8 Scale Used Numeric (1 - 10) M4 PT-IP Mobility and Gait Start: 05/25/19 16:58 Freq: NEEDED Status: Active Protocol: Document 05/26/19 14:15 GGD (Rec: 05/26/19 15:22 GGD [id number]) PT-Bed Mobility Assessment Rolling Type of Rolling Log Rolling Level of Assist Standby Assistance Supine to Sit Supine to Sit Moderate Assistance,1 Person Assistance,Bedrails Sit to Supine Sit to Supine Minimal Assistance,1 Person Assistance,Bedrails Scooting Scooting to Edge of Bed Standby Assistance PT-Transfer Assessment Sit to and From Stand Sit to and from Stand Contact Guard Assistance,Use of Upper Extremities Equipment Transfer Assistive Device Gait Belt,Front Wheeled Walker Transfers Transfer Destination Bed Transfer Ability Level of Assist Minimal Assistance,1 Person Assistance,Use of Upper Extremities Gait Assessment Gait Gait Assistance Required: Contact Guard Assist Distance (Feet) 140 Assistive Devices Assistive Device Gait Belt,Front Wheeled Walker Orthotic/Prosthetic Devices or Brace: No Factors Limiting Gait Function Factors Limiting Gait Function Decreased Activity Tolerance, Decreased Strength,Pain M5 PT-IP Objective Assessments Start: 05/25/19 16:58 Freq: NEEDED Status: Active Protocol: Document 05/25/19 16:58 DLM (Rec: 05/25/19 17:12 DLM [email or web address]) Orientation Orientation/Cognition Level of Alertness Alert Orientation Name,Age,Birthday,Month,Date, Year,Day of Week,Place, Situation Language Function Ability No Deficits Noted Safety Awareness Understands Safety Issues Memory Description No Deficits Noted Gross Range of Motion Upper Extremity ROM Assessment Within Functional Limits Lower Extremity ROM Assessment Within Functional Limits Impairments trunk ROM limited by post-op restrictions and pain Strength Upper Extremity Strength Assessment Within Functional Limits Lower Extremity Strength Assessment Right Impaired Ankle DF 2+/5 Comments Strength Comments pt reports right LE weakness with weight bearing Coordination Assessment Gross Coordination Gross Coordination WNL Sensation Assessment Sensation Gross Sensation Right LE Impaired Sensation Description Numbness Comments Sensation Comments right foot, right lateral distal LE up to knee Muscle Tone Muscle Tone WNL Yes M6 PT-IP Treatment Start: 05/25/19 16:58 Freq: NEEDED Status: Active Protocol: Document 05/26/19 14:15 GGD (Rec: 05/26/19 15:22 GGD [id number]) Physical Therapy Treatment Education Education Provided Precautions,Safety M7 PT-IP Assessment and Plan Start: 05/25/19 16:58 Freq: NEEDED Status: Active Protocol: Document 05/26/19 14:15 GGD (Rec: 05/26/19 15:22 GGD [id number]) PT Summary Assessment and Plan Summary Assessment Summary Pt needed increase in assist with bed mobility. He was able to progress gait distance. He have increase in pain with bed mobility. Frequency of Treatment Frequency Of Treatment Twice a Day Treatment Plan Physical Therapy Treatment Plan Bed Mobility Training,Transfer Training,Gait Training, Therapeutic Exercise,Balance Retraining,Post Op Education, Discharge Planning Recommendations To Nursing Amount of Assist Needed 1 Person Assist Discharge Recommendations PT Discharge Recommendations Home with Assistance
--- NOTE | 2019-05-26 18:32 | PC.NURSE ---
1830- Pt with family in room, 96%RA, LS clear, denies SOB. CMS/PP+, bilat feet SCD's on. C/O pain 03/05, medicated with oxycodone 10mg PO @ 1630. Back island drsg CDI with marked boarder sm area old shadow drainage, retaped left side where gauze and tape meet due to a tear beginning. Up to BRP x2 to void at this time. R hand SL. Bed alarm on, call light in reach.
[2019-05-26] MEDS: ACETAMINOPHEN 325 MG TABLET 650 MG PO (18:58)
[2019-05-26] MEDS: METFORMIN HCL 500 MG TABLET 1000 MG PO (21:09)
[2019-05-26] MEDS: SENNOSIDES 8.6 MG TABLET 17.2 MG PO (21:09)
[2019-05-26] MEDS: ATORVASTATIN 20 MG TABLET PO (21:09)
[2019-05-26] MEDS: LISINOPRIL 10 MG TABLET PO (21:10)
[2019-05-26] MEDS: METOPROLOL ER 50 MG TABLET PO (21:11)
[2019-05-26] MEDS: NORTRIPTYLINE HCL 25 MG CAPSULE 50 MG PO (21:14)
[2019-05-26] MEDS: CITALOPRAM 20 MG TABLET 40 MG PO (21:14)
[2019-05-26] MEDS: SODIUM CHLORIDE 0.9% FLUSH 10 ML IV (21:17)
[2019-05-27] MEDS: MAGNESIUM HYDROXIDE 30 ML UDC PO (02:14)
[2019-05-27] MEDS: ACETAMINOPHEN 325 MG TABLET 650 MG PO (02:16)
--- NOTE | 2019-05-27 02:32 | PC.NURSE ---
Addendum entered by Arlen Delatorre R.N. 05/27/19 06:25: Patient sleeping at this time, call light in reach. Original Note: Patient c/o abdominal discomfort r/t constipation. Back pain at 8 r/t Sx. Up to bathroom then back to bed with front wheel walker. PRN Tylenol and milk of mag given. Patient grimacing and guarding abd. Lung sounds clear, pulses regular, strong bilaterally, bowel sounds active all four quadrants, will continue to monitor for pain control and constipation relief.
[2019-05-27 05:14] VITALS: BP 130/74; PULSE 70; RESP 16; TEMP 36.6; O2SAT 99
[2019-05-27] MEDS: OXYCODONE IR 10 MG TABLET PO ×2 (08:02→13:18)
[2019-05-27] MEDS: NICOTINE 21 MG PATCH TOP (08:02)
[2019-05-27] MEDS: DOCUSATE 100 MG CAPSULE PO (08:02)
[2019-05-27] MEDS: SODIUM CHLORIDE 0.9% FLUSH 10 ML IV (08:02)
[2019-05-27] MEDS: BISACODYL 10 MG SUPP PR (08:02)
[2019-05-27] MEDS: hydrOXYzine pamoate 25 MG CAPSULE PO ×2 (08:02→13:18)
[2019-05-27 08:35] VITALS: BP 124/70; PULSE 72; RESP 16; TEMP 36.8; O2SAT 98
--- NOTE | 2019-05-27 08:56 | P.PN_ITS ---
Subjective Subjective Date Patient Seen: 05/27/19 Time Patient Seen: 08:56 Interval history: Complains of 7/10, all across the back. He is having a worse day-to-day and requiring more assistance to get up and down and move around. No leg pain. Exam Vital Signs (past 8 hours): - 05/27/19 05:14 Temperature 98 F Pulse Rate 70 Respiratory Rate 16 Blood Pressure 130/74 Pulse Oximetry 99 Oxygen Delivery Method Room Air Oxygen Flow Rate 0 Const Orientation: alert and oriented x3 Back/Spine/Pelvis Other: Mild dry drainage. 5/5 motor both lower extremities except for 4/5 right AT/EHL Objective Labs Result Diagrams: 05/26/19 05:20 Assessment & Plan Post-op Postoperative Procedures: Procedures Operation Date: 05/25/19 07:45 Actual Procedures Side Surgeon p L3-4,L4-5,L5-S1 TLIF with posterior intrumentation Monserrat Srivastava MD So with mobilization. We will continue to get him up with physical therapy today. If he is doing well and independent with mobility he could possibly dis charge home this afternoon. If not tomorrow.
[2019-05-27 12:00] VITALS: BP 132/68; PULSE 80; RESP 16; TEMP 36.9; O2SAT 99
--- NOTE | 2019-05-27 14:27 | PT.IPTN ---
Current Diagnoses Foot drop, right foot (05/25/19) Spinal stenosis, lumbar region without neurogenic claudication (05/25/19) Postlaminectomy syndrome, not elsewhere classified (05/25/19) Surgery Performed Operation Date: 05/25/19 07:45 Actual Procedures p L3-4,L4-5,L5-S1 TLIF with posterior intrumentation - Monserrat Srivastava MD Physical Therapy Treatment Note M2 PT-IP Current Condition Start: 05/25/19 16:58 Freq: NEEDED Status: Active Protocol: Document 05/25/19 16:58 DLM (Rec: 05/25/19 17:12 DLM [email or web address]) Physical Therapy Current Condition Current Condition Evaluation Date 05/25/19 Treatment Diagnosis L3-S1 TLIF, right foot drop, impaired mobility/gait Onset Date 05/25/19 Precautions Lumbar Precautions Log Roll,No Twisting,Limit Bending,Lifting Restriction of 10 lbs,Gait Belt above Incisional Area M3 PT-IP Subjective Start: 05/25/19 16:58 Freq: NEEDED Status: Active Protocol: Document 05/27/19 14:17 AW (Rec: 05/27/19 14:27 AW [id number]) Subjective Physical Therapy Visit Type Type Treatment Note Visit Start Time 14:00 Visit Stop Time 14:16 Total Visit Minutes 16 Physical Therapy Visit Comments Patient Comments Pt's ride is coming at 1430. He is preparing for discharge Therapy Pain Assessment Pain When Pain Assessed During Mobility Pain Present Pain Present Pain Reported Location Lower Back Intensity 7 Scale Used Numeric (1 - 10) Pain Management Techniques Modification of Treatment,Re- positioning,Timing of Activity with Medications M4 PT-IP Mobility and Gait Start: 05/25/19 16:58 Freq: NEEDED Status: Active Protocol: Document 05/27/19 14:17 AW (Rec: 05/27/19 14:27 AW [id number]) PT-Bed Mobility Assessment Rolling Type of Rolling Log Rolling Level of Assist Independent Supine to Sit Supine to Sit Independent Scooting Scooting to Edge of Bed Independent PT-Transfer Assessment Sit to and From Stand Sit to and from Stand Standby Assistance,Use of Upper Extremities Equipment Transfer Assistive Device Gait Belt,Front Wheeled Walker Transfers Transfer Destination Bed Transfer Ability Level of Assist Standby Assistance Comments Mobility Comments Pt limited by pain but denies any weakness. Gait Assessment Gait Gait Assistance Required: Standby Assistance Distance (Feet) 220 Assistive Devices Assistive Device Gait Belt,Front Wheeled Walker Orthotic/Prosthetic Devices or Brace: No Factors Limiting Gait Function Factors Limiting Gait Function Decreased Activity Tolerance, Decreased Strength,Pain Comments Gait Comments Pt ambulated 220 feet using FWW and requiring SBA. No loss of balance. Good attention to spinal surgery precautions Stair Climbing Assessment Evaluation Level of Assist On Stairs Standby Assistance Devices Stair Climbing Assistive Devices Right Railing Technique/Endurance Stair Climbing Direction Ascend and Descend Stair Climbing Technique Step Over Step,Step to Step Number of Steps Climbed 3 Stair Climbing Set # Repetitions (reps) 2 Comments Stair Climbing Comments Pt ascended step over step, descended step-to. PT-Balance Assessment Sitting Balance and Reactions Static Sitting Balance Ability Good Dynamic Sitting Balance Ability Good Standing Balance and Reactions Static Standing Balance Ability Good Dynamic Standing Balance Ability Good Device Used FWW M5 PT-IP Objective Assessments Start: 05/25/19 16:58 Freq: NEEDED Status: Active Protocol: Document 05/25/19 16:58 DLM (Rec: 05/25/19 17:12 DLM [email or web address]) Orientation Orientation/Cognition Level of Alertness Alert Orientation Name,Age,Birthday,Month,Date, Year,Day of Week,Place, Situation Language Function Ability No Deficits Noted Safety Awareness Understands Safety Issues Memory Description No Deficits Noted Gross Range of Motion Upper Extremity ROM Assessment Within Functional Limits Lower Extremity ROM Assessment Within Functional Limits Impairments trunk ROM limited by post-op restrictions and pain Strength Upper Extremity Strength Assessment Within Functional Limits Lower Extremity Strength Assessment Right Impaired Ankle DF 2+/5 Comments Strength Comments pt reports right LE weakness with weight bearing Coordination Assessment Gross Coordination Gross Coordination WNL Sensation Assessment Sensation Gross Sensation Right LE Impaired Sensation Description Numbness Comments Sensation Comments right foot, right lateral distal LE up to knee Muscle Tone Muscle Tone WNL Yes M6 PT-IP Treatment Start: 05/25/19 16:58 Freq: NEEDED Status: Active Protocol: Document 05/27/19 14:17 AW (Rec: 05/27/19 14:27 AW [id number]) Physical Therapy Treatment Education Education Provided Precautions,Safety Equipment Issued Equipment Type and Company [facility], [employer]. Order M7 PT-IP Assessment and Plan Start: 05/25/19 16:58 Freq: NEEDED Status: Active Protocol: Document 05/27/19 14:17 AW (Rec: 05/27/19 14:27 AW [id number]) PT Summary Assessment and Plan Summary Assessment Summary Pt independent with bed mobility, requiring SBA at most for transfers and gait. He demonstrates good safety awareness and plans movements in order to maintain spinal precautions. Pt planning to discharge this afternoon. Goals Bed Mobility Goal Independent Transfer Goal Independent,Front Wheeled Walker Gait Goal Independent,Front Wheel Walker Gait Distance 100 feet Other Goals up and down 4 steps with rail and cane and SBA Days to Meet Goals 2 Frequency of Treatment Frequency Of Treatment Twice a Day Treatment Plan Physical Therapy Treatment Plan Bed Mobility Training,Transfer Training,Gait Training, Therapeutic Exercise,Balance Retraining,Post Op Education, Discharge Planning Recommendations To Nursing Amount of Assist Needed Standby Assistance Discharge Recommendations PT Discharge Recommendations Home with Assistance
--- NOTE | 2019-05-27 15:23 | PC.NURSE ---
d/c pt tolerating pain ok, states controlled with oxy and vistaril. up with CGA, pt does 99% of work himself. Spoke with pt and eplained that to him and he stated he was ok going home. D/c packet made, pt dressed and packed. PIV removed. Next shift RN to go over d/c instructions.
--- NOTE | 2019-05-27 15:41 | PC.NURSE ---
Pt fully dressed sitting up in recliner in room 204 with spouse present awaiting discharge to home. Discharge instructions reviewed with pt and pt's spouse in written and verbal format. Scripts for stool softener, oxycodone and hydroxyzine provided to pt's spouse. Pt states all belongings accounted for. Pt left hospital via wheelchair with spouse escorted by SHOP HELPER in stable condition. Reports iv removed prior to the beginning of this shift.
--- NOTE | 2019-05-28 07:51 | P.DS_ITS ---
History of Present Illness History of Present Illness Date Patient Seen: 05/27/19 Time Patient Seen: 09:00 Chief complaint: [id number] Narrative: 58-year-old male with spinal stenosis. Failed conservative management Discharge Providers Provider Date of admission: 05/25/19 06:03 Discharge Date: 05/27/19 Consults: 05/25/19 14:57 Consult to Occupational Therapy Evaluate & Treat Comment: Physician Instructions: Evaluate and treat Consult to Physical Therapy Evaluate & Treat Comment: Physician Instructions: Evaluate and Treat 05/25/19 16:25 Consult to Operations Research Analyst Routine Comment: 05/27/19 12:22 Consult to Physical Therapy Evaluate & Treat Comment: FWW for home use Physician Instructions: Evaluate and Treat Discharge provider: Shaw Linder MD Summary Hospital Course Discharge Diagnosis: Lumbar stenosis Hospital Course: He was brought to the operating room on 05/25/2019 where he underwent a L3 through S1 instrumented fusion with Dr Srivastava. Postoperatively he was having issues with pain control but by postoperative day 3 was under better pain control and moving independently. Status at Discharge Cognitive/behavioral status at discharge: oriented Functional status at discharge: uses cane/walker Overall status at discharge: patient is progressing back to baseline Exam Vital Signs (past 8 hours): Oxygen Delivery Method Room Air Oxygen Flow Rate 0 Const Orientation: alert and oriented x3 Back/Spine/Pelvis Other: Mild dry drainage. 5/5 motor both lower extremities except for 4/5 right AT/EHL Objective Labs Result Diagrams: 05/26/19 05:20 Discharge Plan Discharge Plan Patient Disposition: Home Discharge comment: f/u 1.5 wks Discharge Med Rec/Prescriptions Prescriptions: New docusate sodium [DOK] 100 mg Capsule 100 mg PO BID PRN (Reason: constipation) Qty: 30 RF: 0 hydroxyzine pamoate 25 mg Capsule 25 mg PO Q4HR PRN (Reason: spasms) Qty: 20 RF: 0 oxycodone 10 mg Tablet See Rx Instructions .ROUTE .COMPLEX PRN (Reason: Pain, Severe (7-10)) Qty: 30 RF: 0 Continued atorvastatin 20 mg Tablet 40 mg PO BEDTIME RF: 0 metoprolol succinate 50 mg Tablet Extended Release 24 Hr 50 mg PO BEDTIME RF: 0 nortriptyline 25 mg Capsule 25 mg PO BEDTIME RF: 0 citalopram 20 mg Tablet 40 mg PO BEDTIME RF: 0 lisinopril 10 mg Tablet 10 mg PO BEDTIME RF: 0 metformin 500 mg Tablet 1,000 mg PO BEDTIME RF: 0 Provider Discharge Instructions Diet: Carb-consistent/Diabetic Activity: 10 lbs lift, minimal bend/twist Skin/Wound/Dressing Care Report to your healthcare provider any signs of infection, such as:: chills, fever, night sweats, increased pain, unusual drainage and unusual redness Dressing: Keep dressing intact until postoperative visit. Visit Report/Discharge Packet Instructions: Oxycodone, DI for Transforaminal Lumbar Interbody Fusion, Hydroxyzine (By mouth) Stand Alone Forms: Surgery Discharge Visit Report Forms: Stroke Signs & Symptoms Discharges patient from system. Discharge Date/Time: 05/27/19 15:45
== END 2019-05-27 15:45 | disposition home or self-care (01) | DRG 304 ==
PROVIDERS: Admitting Provider Orthopaedic Surgery Orthopaedic Surgery of the Spine; Visit Provider Orthopaedic Surgery Orthopaedic Surgery of the Spine
PROC: 0SG10AJ Fusion of 2 or more Lumbar Vertebral Joints with Interbody Fusion Device, Posterior Approach, Anterior Column, Open Approach (ICD-10-PCS; principal; 2019-05-25 07:45)
DX: M48.061 Spinal stenosis, lumbar region without neurogenic claudication (principal); M96.1 Postlaminectomy syndrome, not elsewhere classified; M21.371 Foot drop, right foot; M47.26 Other spondylosis with radiculopathy, lumbar region; M47.27 Other spondylosis with radiculopathy, lumbosacral region; M48.07 Spinal stenosis, lumbosacral region; Y99.0 Civilian activity done for income or pay
CPT/HCPCS: 36415; 72100; 76000; 85014; 85018; 97116; 97162; 97165; 97530; 97535; C1776; C9290; J0330; J0690; J1100; J1170; J2060; J2250; J2405; J2704; J3010

== ENCOUNTER → 2021-10-27 14:05 | Outpatient (CLI) | payer OTHER, SELFPAY ==
[2019-05-25 16:13] VITALS: BMI 30.4
[2021-10-27 14:39] LABS: Add Manual Diff / Slide Review NO; Basophils Absolute Auto 100 /uL (0-100); Basophils Percent Auto 0.7 % (0-2); Eosinophils Absolute Auto 300 /uL (0-450); Eosinophils Percent Auto 3.7 % (2-4); Hematocrit 45.1 % (41-53); Hemoglobin 15.7 g/dL (13.5-17.5); Lymphocytes Absolute Auto 2800 /uL (1100-4500); Mean Corpuscular HGB Conc 34.9 % (30-36); Mean Corpuscular Hemoglobin 32.6 PG (26-34); Mean Corpuscular Volume 93.3 fL (80-100); Monocytes Absolute Auto 800 /uL (0-900); Monocytes Percent Auto 9.3 % (3-14); Neutrophils Absolute Auto 4800 /uL (1500-7000); Neutrophils Percent Auto 54.3 % (50-75); Platelet Count 249 X10^3/uL (150-400); Red Blood Cell Count 4.83 X10^6/uL (4.5-5.9); Red Cell Distribution Width 12.6 % (11.6-14.8); White Blood Cell Count 8.9 X10^3/uL (4.5-11.0)
[2021-10-27 14:48] LABS: Hemoglobin A1C% w Est Avg Glu 5.5 % (4.0-6.0)
[2021-10-27 14:52] LABS: BUN Creatinine Ratio 20.3 (6-22); Blood Urea Nitrogen 16 mg/dL (9-20); Carbon Dioxide 29 mmol/L (22-32); Chloride 104 mmol/L (98-107); Estimated Glomerular Filt Rate > 60.0 mL/min (>60); Glucose 78 mg/dL (80-110); HEMOLYSIS 23 (0-50); Potassium 4.2 mmol/L (3.4-5.1); Sodium 139 mmol/L (137-145)
== END ==
PROVIDERS: Referring Provider Orthopaedic Surgery; Visit Provider Orthopaedic Surgery
DX: Z01.812 Encounter for preprocedural laboratory examination (principal); R73.9 Hyperglycemia, unspecified
CPT/HCPCS: 36415; 80048; 83036; 85025; 93005

== ENCOUNTER → 2021-11-02 11:19 | Outpatient (CLI) | payer OTHER, SELFPAY ==
[2019-05-25 16:13] VITALS: BMI 30.4
[2021-11-02 14:04] LABS: COVID19 -Nasal RAPID Negative (Negative)
== END ==
PROVIDERS: Referring Provider Orthopaedic Surgery; Visit Provider Family Medicine Sleep Medicine
DX: Z20.822 Contact with and (suspected) exposure to COVID-19 (principal)
CPT/HCPCS: 87635; C9803

== ENCOUNTER 2021-11-04 07:59 | Day surgery (SDC) | payer OTHER, SELFPAY ==
[2019-05-25 16:13] VITALS: BMI 30.4
[2021-10-30 12:18] VITALS: BMI 29.0
[2021-11-04] VITALS (12 sets, daily range): BP systolic 96–131; BP diastolic 44–87; PULSE 58–72; RESP 10–19; TEMP 35.9–36.8; O2SAT 95–100; BMI 29.0
--- NOTE | 2021-11-04 06:00 | DI.RAD.S_ITS ---
PROCEDURE: XR SHOULDER LT 1V INDICATIONS: post op total shoulder TECHNIQUE: One views of the shoulder were acquired. COMPARISON: None. FINDINGS: Bones: Reverse shoulder arthroplasty components are in position. The joint is congruent. No unexpected fractures. Soft tissues: Expected postop changes in the soft tissues. IMPRESSION: Expected appearance post left shoulder arthroplasty. Dictated by: Suzanne High M.D. on 11/04/2021 at 14:23 Approved by: Suzanne High M.D. on 11/04/2021 at 14:24
[2021-11-04] MEDS: LACTATED RINGERS 1,000 ML 42 ML IV ×2 (09:10→12:22)
[2021-11-04] MEDS: PREGABALIN 75 MG CAPSULE PO (09:17)
[2021-11-04] MEDS: CELECOXIB 200 MG CAPSULE PO (09:17)
[2021-11-04] MEDS: ACETAMINOPHEN 325 MG TABLET 975 MG PO (09:17)
--- NOTE | 2021-11-04 10:30 | PM.PREOP ---
Pre-operative Note COVID-19 COVID-19 status: Negative Result date/Date tested (Pos, Neg/Pending): 11/02/21 Criteria for continued procedure: Expected advancement of disease process, Increased loss of function, Continuing or worsening of significant or severe pain and Non-surgical alternatives not available or appropriate per current SOC Interval Note History & Physical reviewed/Exam performed by Physician: Yes Changes to H&P: No
--- NOTE | 2021-11-04 10:54 | PM.OP.1 ---
Operative Date/Time/Diagnoses Date of procedure: 11/04/21 Time of procedure: 13:18 Pre-op diagnosis: Left shoulder irreparable rotator cuff tear Post-op diagnosis: same Procedure & Clinicians Procedure: Left reverse total shoulder Same procedure as scheduled: Yes Indications: The patient is had chronic left shoulder pain unresponsive to nonoperative therapies. Radiographic studies have revealed changes consistent with a massive rotator cuff tear. They have elected to proceed with reverse total shoulder replacement after discussion of the risks benefits and alternatives. Risks discussed included but were not limited to: Failure to improve, instability, infection, nerve damage, deep venous thrombosis, pulmonary embolism, stroke, coma, myocardial infarction and . Surgeon: Lenny Tao Business Operations Analyst: Marquis Keith Click Yes if Unassisted: No Anesthesia Type: General, Peripheral nerve block and Local Operative Notes Findings: Massive rotator cuff tear including the upper 2/3 of the subscapularis, the entire supraspinatus and infraspinatus. Closure Type: primary Specimen(s): none sent Prosthetic devices, grafts, tissues, transplants, or devices: Implants used in this procedure manufactured by the [employer] and included an are SP reverse total shoulder system with a 30 mm screw length glenoid base plate with 4 locking bolts measuring 38 mm, 30 mm, 18 mm and 14 mm, a 36 mm neutral glenoid head with retaining screw and a size 14 mm standard cup size reverse humeral stem with a 36 mm standard humeral socket insert. Applied: implant(s) Estimated Blood Loss (mL): 200 Blood products transfused: none Procedure in detail: The patient was seen in the preoperative area where they identified the left shoulder as the operative site and this was marked with my initials. They received preoperative antibiotics and underwent the induction of an interscalene block. They were taken to the operating room and placed on the operating room table in a supine position with the underwent the induction of a general anesthetic. There were then repositioned in the ?beach chair? position using a dedicated positioner. All pressure points were well padded. The knees were slightly bent to prevent tension on the sciatic nerves. A real time operator out was performed. The left arm was prepared from the fingertips to the base of the neck with ChloraPrep in the usual fashion and draped through sterile drapes. An approximately 15 cm incision was created starting at the clavicle just above the coracoid and going to the deltoid insertion. The deltopectoral interval was used to access the shoulder taking the vein to the laterall side. The vein was unfortunately lacerated part way through the case by retractor and was cauterized and then ligated. The biceps tendon was identified and used as a guide to releasing the remaining subscapularis. The biceps itself was tenodesed over the pectoralis tendon using a suture. The subscapularis was tagged for later repair. The shoulder was dislocated and a proximal humeral osteotomy performed using an extramedullary guide. A proximal humeral protector was then placed. Retractors were placed access the glenoid. A 360 degree release was performed of the remaining subscapularis with care being taken to protect the axillary nerve. The soft tissues were removed circumferentially around the glenoid. The guide was used to drill the guide hole in the center of the inferior glenoid. The tap was placed and used as a guide for the reamer. The tap was then removed and the glenoid base plate inserted. The peripheral locking screws were then placed through the appropriate guide. A trial glenoid head was applied. We then turned our attention to the humerus. The proximal humeral protector was removed. Cylindrical reamers were used to size the canal. Broaching was then performed beginning with a small broach and working up until a line to line fit with the reamer was obtained. The guide for the proximal metaphyseal reamer was then applied and the metaphysis was reamed appropriately. The trial metaphyseal portion of the body was then applied to the broach. Trial reductions were performed and the size of the glenoid head and the cup were optimized. Stability was checked in maximal internal and external rotation and range of motion was checked to allow access to the top of the head, internal rotation to an excess of 50? in the ?scarecrow position? and the ability to reach the groin. The appropriate final prosthetic components were then opened. The glenoid head was impacted into position and checked for rotational and axial stability before placing the set screw. The humeral prosthetic was then impacted into position. The humeral cup was placed. The joint was relocated and irrigated. The subscapularis remnant was repaired to its lateral stump using [id number] Ethibond sutures. The deltopectoral interval was reapproximated with 0 Vicryl. Subcutaneous layer was closed with interrupted 3-0 Vicryl and skin with a running 3 0 V lock suture and Dermabond. Subcutaneous tissues were then infiltrated with 0.5% Marcaine for postoperative pain control. An Aquacel Ag dressing was applied and the patient's arm was placed in a sling. The patient was then transferred to the recovery room in good condition having tolerated the procedure well. Complications: none Post-operative Condition: stable Disposition: PACU Plan for aftercare: The patient will be maintained in their sling for 6 weeks. They will be allowed to do pendulum exercises. They will be allowed to use a computer and eat with their hand in front of the body. They will be allowed to shower with the dressing in place. DVT prophylaxis will be with aspirin and sequential compression devices.
[2021-11-04] MEDS: MIDAZOLAM 2 MG/2 ML VIAL 1 MG IV ×2 (11:07→11:12)
[2021-11-04] MEDS: fentaNYL 100 MCG/2 ML INJ 50 MCG IV ×2 (11:07→11:12)
--- NOTE | 2021-11-04 11:19 | SUR.OPER ---
Beach chair with Schlein shoulder positioner. Lower body on padded OR bed. Head in foam padded head cradle, secured with straps. Non-operative arm secured <90 degrees abduction. Pillow under knees. Gel pad under kne Safety belt at thigh. Cloth tape over blanket over lower legs.
--- NOTE | 2021-11-04 11:28 | SUR.PREOP ---
Block start time [1118] . Monitoring initiated and maintained throughout procedure. Oxygen and medications given per anesthesiologist instructions. Patient remained stable throughout procedure, no adverse reactions noted. Block end time [1125].
[2021-11-04] MEDS: CEFAZOLIN 2 GM/20 ML SYRINGE IV (11:47)
[2021-11-04] MEDS: TRANEXAMIC ACID 1,000 MG VIAL 1000 MG INJ ×2 (11:49→13:15)
[2021-11-04] MEDS: BUPIVACAINE 0.5% (PF) 30 ML, EPINEPHrine 0.15 MG INJ (12:08)
--- NOTE | 2021-11-04 12:39 | PM.PROC.1 ---
Procedures Date/Time Date of procedure: 11/04/21 Time of procedure: 11:16 Nerve Block Time out performed: Yes Local anesthetic used: other (Ropivacaine 0.5%-13ml and Lidocaine 2% with 1:200 epi-2ml) Location of anesthetic used: Left Interscalene Block Amount of anesthesia used (mL): 15 Nerve blocks: brachial plexus (Interscalene; Left) Procedure successful: Yes Patient tolerated procedure: well and no complications Complications: pain with procedure (Moderate, but well tolerated. ) Procedural Sedation Presedation evaluation: Patient for Reverse TSA with Dr. Tao. Left interscalene block performed pre op for post op pain relief. Consent signed. routine MERCEDEZ monitors. O2 per NC. IV sedation: fentanyl 50+50mcg and midazolam 1+1mg. Ultrasound visualization. 100mm Stimex 22g needle. 1% Lido skin wheel using 30g needle. Negative aspiration upon block needle placement. 2ml test does negative. Total volume of 15ml administered using Ropivacaine 0.5% 13ml and Lidocaine 2% with epi 2ml. Patient tolerated well. Ready for OR.
[2021-11-04] MEDS: OXYCODONE IR 5 MG TABLET PO ×2 (13:40→15:57)
[2021-11-04] MEDS: LACTATED RINGERS 1,000 ML 100 ML IV (14:43)
[2021-11-04] MEDS: ACETAMINOPHEN 325 MG TABLET 650 MG PO ×2 (14:58→20:06)
[2021-11-04] MEDS: IBUPROFEN 400 MG TABLET PO ×2 (16:51→20:06)
[2021-11-04] MEDS: HYDROMORPHONE 2 MG TABLET PO ×2 (18:07→23:33)
[2021-11-04 18:10] LABS: COVID19 -Nasal RAPID Negative (Negative)
--- NOTE | 2021-11-04 18:27 | PC.NURSE ---
A&Ox4. Slightly hypotensive BP: 102/47, HR 58. All other vitals stable. Pain 7/10 left shoulder, given PRN PO dilauded and oxycodone. Aquacel dressing cdi. Sling in place. Ice applied on and off to left shoulder. Good appetite. No n/v. Urinating. SCDs applied BLE. Call light within reach, bed low.
[2021-11-04] MEDS: ASPIRIN EC 81 MG TABLET PO (20:06)
[2021-11-04] MEDS: DULOXETINE 30 MG CAPSULE 60 MG PO (20:07)
[2021-11-04] MEDS: ATORVASTATIN 20 MG TABLET 40 MG PO (20:07)
[2021-11-04] MEDS: CITALOPRAM 10 MG TABLET 40 MG PO (20:07)
[2021-11-04] MEDS: lisinopriL 10 MG TABLET 20 MG PO (20:07)
[2021-11-04] MEDS: DOCUSATE 100 MG CAPSULE PO (20:07)
[2021-11-04] MEDS: METFORMIN HCL 500 MG TABLET PO (20:07)
[2021-11-04] MEDS: OXYCODONE IR 10 MG TABLET PO (21:41)
[2021-11-04] MEDS: ZOLPIDEM 5 MG TABLET 10 MG PO (23:36)
[2021-11-05] MEDS: IBUPROFEN 400 MG TABLET PO ×2 (05:40→08:47)
[2021-11-05] MEDS: OXYCODONE IR 10 MG TABLET PO ×2 (06:11→08:49)
[2021-11-05 06:18] VITALS: BP 133/61; PULSE 75; RESP 18; TEMP 36.4; O2SAT 100
[2021-11-05 06:38] LABS: Hematocrit 39.6 % (41-53); Hemoglobin 13.5 g/dL (13.5-17.5)
--- NOTE | 2021-11-05 07:53 | P.DS_ITS ---
History of Present Illness History of Present Illness Date Patient Seen: 11/05/21 Time Patient Seen: 07:53 Chief complaint: Left shoulder pain s/p left TSA Narrative: Patient is complaining of moderate pain this morning. He denies any numbness or tingling. Overall he is feeling good and would like to be discharged home today. Discharge Providers Provider Discharge Date: 11/05/21 Consults: 11/04/21 14:06 Consult to Discharge Planning Routine Comment: Consult to Physical Therapy Evaluate & Treat Comment: Physician Instructions: may use arm in front of body, below shoulder 1# Consult to Respiratory Therapy Evaluate & Treat Comment: Physician Instructions: Evaluate and treat Discharge provider: Aure Silva PA-C Summary Hospital Course Discharge Diagnosis: Left shoulder irreparable rotator cuff tear Hospital Course: Operative Date/Time/Diagnoses Date of procedure: 11/04/21 Time of procedure: 13:18 Procedure & Clinicians Procedure: Left reverse total shoulder Same procedure as scheduled: Yes Indications: The patient is had chronic left shoulder pain unresponsive to nonoperative therapies.? Radiographic studies have revealed changes consistent with a massive rotator cuff tear. They have elected to proceed with reverse total shoulder replacement after discussion of the risks benefits and alternatives. Risks discussed included but were not limited to:? Failure to improve, instability, infection, nerve damage, deep venous thrombosis, pulmonary embolism, stroke, coma, myocardial infarction and . Surgeon: Lenny Tao Supervisor Force Adjustment: Marquis Keith Click Yes if Unassisted: No Anesthesia Type: General, Peripheral nerve block and Local Operative Notes Findings: Massive rotator cuff tear including the upper 2/3 of the subscapularis, the entire supraspinatus and infraspinatus. Closure Type: primary Specimen(s): none sent Prosthetic devices, grafts, tissues, transplants, or devices: Implants used in this procedure manufactured by the [employer] and included an are SP reverse total shoulder system with a 30 mm screw length glenoid base plate with 4 locking bolts measuring 38 mm, 30 mm, 18 mm and 14 mm, a 36 mm neutral glenoid head with retaining screw and a size 14 mm standard cup size reverse humeral stem with a 36 mm standard humeral socket insert. Applied: implant(s) Estimated Blood Loss (mL): 200 Blood products transfused: none Status at Discharge Cognitive/behavioral status at discharge: oriented Functional status at discharge: independent ambulation Overall status at discharge: patient is progressing back to baseline Exam Vital Signs (past 8 hours): - 11/05/21 06:18 Temperature 97.5 F L Pulse Rate 75 Respiratory Rate 18 Blood Pressure 133/61 Pulse Oximetry 100 Oxygen Delivery Method Room Air Oxygen Flow Rate 0 Narrative Exam Narrative: Pleasant 61-year-old male, walking around his room and the hallways, no acute distress. Bandage is clean, dry, intact. Sling is in place. Bilateral upper extremity motor function is grossly intact, sensation is grossly intact to light touch. Objective Labs Result Diagrams: 11/05/21 06:04 Labs: Laboratory Results - last 24 hr 11/04/21 11/05/21 17:30 06:04 Hgb 13.5 Hct 39.6 L SARS-CoV-2 (PCR) Negative PFSH Medical History Anxiety Arthritis Depression Diabetes HLD (hyperlipidemia) HTN (hypertension) Neuropathy RADHA (obstructive sleep apnea) Psoriasis Sciatica Surgical History History of lumbar spinal fusion (05/25/19) Hx of discectomy (11/19/14) Hx of discectomy (~2001) Hx of right knee surgery (~1988) Social History household members: spouse Smoking Status: Current some day smoker alcohol intake: current Discharge Assessment & Plan Assessment and Plan Assessment: Stable status post left reverse total shoulder arthroplasty Plan of Treatment: -work with PT. Maintain sling x6 weeks. Okay for pendulum exercises and working on the computer and eating in front of his face. -Aspirin 81 mg twice daily x2 weeks for DVT prophylaxis -continue with current pain regimen -DC home today once cleared by PT. The patient notes he will need help arranging a ride home. Discharge Plan Discharge Plan Patient Disposition: Home Discharge orders & Medications Discharge Orders: Discharge (Order); Ordered 11/05/21 Ordered By: Aure Silva Prescriptions: New acetaminophen 500 mg capsule 500 mg PO Q4H MDD Max 3000 mg per day PRN (Reason: fever or pain) Qty: 90 0RF aspirin 81 mg Tablet,Delayed Release (Dr/Ec) 81 mg PO BID Qty: 90 0RF Rx Instructions: X6 weeks to prevent blood clots docusate sodium 100 mg Capsule 100 mg PO BID PRN (Reason: Constipation from narcotic pain meds) Qty: 20 0RF ibuprofen 400 mg Tablet 400 mg PO Q4HR MDD Max 2400 mg per day PRN (Reason: Pain/inflammation) Qty: 90 0RF oxycodone 10 mg Tablet 10 mg PO Q3HR PRN (Reason: Pain, Severe (7-10)) Qty: 42 0RF Continued atorvastatin 20 mg Tablet 40 mg PO BEDTIME 0RF metoprolol succinate 50 mg Tablet Extended Release 24 Hr 50 mg PO DAILY 0RF citalopram 20 mg Tablet 40 mg PO BEDTIME 0RF lisinopril 10 mg Tablet 20 mg PO BEDTIME 0RF metformin 500 mg Tablet 500 mg PO BID 0RF sildenafil 100 mg Tablet 100 mg PO DAILY PRN (Reason: Sexual Activity) 0RF Rx Instructions: administer 30 minutes to 4 hours before activity methocarbamol 750 mg Tablet 750 - 1,500 mg PO Q6H PRN (Reason: Muscle Spasm) 0RF zolpidem 10 mg Tablet 10 mg PO BEDTIME PRN (Reason: Sleep) 0RF duloxetine 60 mg Capsule,Delayed Release(Dr/Ec) 60 mg PO BEDTIME 0RF Discontinued aspirin [Aspirin Low-Strength] 81 mg Tablet,Delayed Release (Dr/Ec) 81 mg PO DAILY 0RF Follow up/Referrals: Lenny Tao MD [Physician] - (10-14 days for postoperative visit) Diet/Activity/Treatments Diet: Diet as Tolerated and Regular Other treatments: -maintain sling for 6 weeks -ok to work on pendulum exercises. They will be allowed to use a computer and eat with their hand in front of the body. Medications: -Aspirin 81mg twice daily x2 weeks to prevent blood clots. -OTC Tylenol 500 mg 1 tablet every 4 hours as needed for pain/fever. Max 6 tablets per day. -Ibuprofen 400mg 1 tablet every 4 hours as needed for pain/inflammation. Max 6 tabs per day. -Oxycodone 10 mg take 1 tablets every 3 hours as needed for moderate-severe pain (narcotic pain medication). -As needed medications: -Ducolax and /or MiraLax as needed for constipation from narcotic pain medications. -Pepcid AC as needed for stomach upset (usually from aspirin or ibuprofen). Dressing/Wound care: -Keep Aquacell dressing in place until postoperative follow-up office visit. -Okay to shower. Keep wound out of direct water stream. No soaking or submerging until all the scabs fall off (approximately 6 weeks). -Please call the office if dressing becomes wet, soiled, or saturated. Activities: -Continue with sling x6 weeks. -Continue with pendulum exercises as directed by your physical therapist. -Ice your incision as needed for pain/inflammation/swelling. Protect your skin with a folded pillowcase. Follow-up: -Follow-up with your surgeon or PA in the office in 10-14 days after surgery. -Follow-up with your surgeon 6 weeks postoperatively. Call the office if you have chest pain, shortness of breath, significant swelling that will not resolve with elevating, fever over 101?, significantly worsening pain. [facility]: [phone] Skin/Wound/Dressing Care Report to your healthcare provider any signs of infection, such as:: chills, fever, night sweats, unusual drainage and unusual redness Visit Report/Discharge Packet Instructions: DI for Shoulder Replacement Discharge Data Attending Provider: Lenny Tao Quality VTE Deep Vein Thrombosis/Pulmonary Embolism Present on Admission: No
[2021-11-05 08:48] VITALS: BP 133/61
[2021-11-05] MEDS: METOPROLOL ER 50 MG TABLET PO (08:48)
[2021-11-05] MEDS: DOCUSATE 100 MG CAPSULE PO (08:48)
[2021-11-05] MEDS: ASPIRIN EC 81 MG TABLET PO (08:49)
[2021-11-05] MEDS: ACETAMINOPHEN 325 MG TABLET 650 MG PO (08:49)
[2021-11-05] MEDS: METFORMIN HCL 500 MG TABLET PO (08:49)
[2021-11-05 08:56] VITALS: BP 122/61; PULSE 96; RESP 17; TEMP 36.1; O2SAT 96
--- NOTE | 2021-11-05 09:05 | PT.IIE ---
Current Diagnoses Strain of muscle(s) and tendon(s) of the rotator cuff of left shoulder, initial encounter (11/04/21) Surgery Performed Operation Date: 11/04/21 10:00 Actual Procedures p Total Shoulder Arthroplasty - Reverse(Left) - Lenny Tao MD Medical History (Last Reviewed 11/05/21 @ 07:55 by Aure Silva PA-C) Anxiety Arthritis Depression Diabetes HLD (hyperlipidemia) HTN (hypertension) Neuropathy RADHA (obstructive sleep apnea) Psoriasis Sciatica Physical Therapy Inpatient Evaluation/Re-Eval M1 PT/OT-IP Prior Functional Status Start: 11/05/21 12:14 Freq: NEEDED Status: Active Protocol: Document 11/05/21 09:05 AB (Rec: 11/05/21 12:29 AB [email or web address]) Medical Review Prior Functional Status Medical History Reviewed Yes Communication able to make needs known Mobility and Gait pt stated that he is independent with all mobilities and ambulation without AD Social History Household Members spouse Living Arrangements House Number of Floors (Floors) One Floor Number of Stairs To Enter/Railing? 4 steps B rails to enter Home Environment Standard Height Toilet,Walk in Shower,Tub/Shower Doors Home Equipment Straight Cane,Shower Seat without Backrest,Grab Bars In Shower M2 PT-IP Current Condition Start: 11/05/21 12:14 Freq: NEEDED Status: Active Protocol: Document 11/05/21 09:05 AB (Rec: 11/05/21 12:29 AB [email or web address]) Physical Therapy Current Condition Current Condition Evaluation Date 11/05/21 Treatment Diagnosis s/p L TSA reverse; difficulty in walking Onset Date 11/04/21 M3 PT-IP Subjective Start: 11/05/21 12:14 Freq: NEEDED Status: Active Protocol: Document 11/05/21 09:05 AB (Rec: 11/05/21 12:29 AB [email or web address]) Subjective Physical Therapy Visit Type Type Initial Evaluation Visit Start Time 09:05 Visit Stop Time 09:35 Total Visit Minutes 30 Number of GREENSKEEPER SUPERVISOR Visits 0 Physical Therapy Visit Comments Patient Comments agreeable to do PT Therapy Pain Assessment Pain When Pain Assessed At Rest Pain Present Pain Present Pain Reported Location Left Shoulder Intensity 4 Scale Used Numeric (0 - 10) Pain Management Techniques Distraction,Re-positioning, Timing of Activity with Medications M4 PT-IP Mobility and Gait Start: 11/05/21 12:14 Freq: NEEDED Status: Active Protocol: Document 11/05/21 09:05 AB (Rec: 11/05/21 12:29 AB [email or web address]) PT-Bed Mobility Assessment Supine to Sit Supine to Sit Standby Assistance Sit to Supine Sit to Supine Standby Assistance PT-Transfer Assessment Sit to and From Stand Sit to and from Stand Standby Assistance Equipment Transfer Assistive Device None,Gait Belt Orthotic/Prosthetic Devices or Brace: Yes Comments Mobility Comments educated pt on shoulder precautions. completed supine to sit sBA. able to sit on EOB SBA. educated on sling management. pt stated that his spouse is a medical coding instructor and will know to manage sling. pt completed elbow/hand exercises sittin on EOB. performed pendulum exercise with PT's guidance and cues. pt donned his shirt on in pendulum position and completed with cues. Assisted pt on sling donning/doffing. pt ambulated ~ 200 ft without AD SBA. presents with antalgic gait but no LOB. completed up/down stairs using 1 rail SBA. ambulated back to his room. pt sat on EOB. Pt without any further concerns. informed nurse regarding pt's mobility. Gait Assessment Gait Gait Assistance Required: Standby Assistance Distance (Feet) 200 Able to Maintain Weight Bearing Status Yes During Gait Assistive Devices Assistive Device None,Gait Belt Orthotic/Prosthetic Devices or Brace: Yes Gait Deviations General Gait Pattern Antalgic Factors Limiting Gait Function Factors Limiting Gait Function Decreased Strength,Limited Range of Motion,Pain,Poor Balance Stair Climbing Assessment Evaluation Level of Assist On Stairs Standby Assistance Devices Stair Climbing Assistive Devices Right Railing Technique/Endurance Stair Climbing Direction Ascend and Descend Stair Climbing Technique Step Over Step Number of Steps Climbed 3 Query Text: Stair Climbing Set # Repetitions (reps) 2 PT-Balance Assessment Sitting Balance and Reactions Static Sitting Balance Ability Normal Dynamic Sitting Balance Ability Good Standing Balance and Reactions Static Standing Balance Ability Good Dynamic Standing Balance Ability Good Device Used without AD M5 PT-IP Objective Assessments Start: 11/05/21 12:14 Freq: NEEDED Status: Active Protocol: Document 11/05/21 09:05 AB (Rec: 11/05/21 12:29 AB [email or web address]) Orientation Orientation/Cognition Level of Alertness Alert Orientation Name,Place,Situation Language Function Ability No Deficits Noted Safety Awareness Understands Safety Issues Memory Description No Deficits Noted Gross Range of Motion Lower Extremity ROM Assessment Within Functional Limits Strength Lower Extremity Strength Assessment Within Functional Limits Sensation Assessment Sensation Gross Sensation Right LE Impaired,Left LE Impaired Sensation Description Numbness Comments Sensation Comments stated BLE neuropathy Muscle Tone Muscle Tone WNL Yes M6 PT-IP Treatment Start: 11/05/21 12:14 Freq: NEEDED Status: Active Protocol: Document 11/05/21 09:05 (Rec: 11/05/21 12:29 [email or web address]) Physical Therapy Treatment Education Education Provided Precautions,Weight Bearing Status,Post-Op Packet,Safety M7 PT-IP Assessment and Plan Start: 11/05/21 12:14 Freq: NEEDED Status: Active Protocol: Document 11/05/21 09:05 AB (Rec: 11/05/21 12:29 [email or web address]) PT Summary Assessment and Plan Potential Rehabilitation Potential Good Status of Condition at Evaluation Stable Summary Impairments Pain,ROM,Strength,Balance, Coordination,Sensation,Tone, Cognition,Bed Mobility, Transfers,Gait,Activity Tolerance Assessment Summary pt requiring SBA with mobility without AD. Pt plans to go home and spouse to assist him at home. Educated pt on shoulder precautions and post- op handout provided. Pt without any other concerns. Pt may go home when stable. Goals Bed Mobility Goal Independent Transfer Goal Independent Gait Goal Independent Gait Distance 250 Other Goals up/down 4 steps without rails mod I Days to Meet Goals 3 Frequency of Treatment Frequency Of Treatment Once a Day Treatment Plan Physical Therapy Treatment Plan Bed Mobility Training,Transfer Training,Gait Training, Therapeutic Exercise,Balance Retraining,Post Op Education, Discharge Planning,Hot or Cold Pack,Neuromuscular Re-ed, Coordination Retraining,Manual Therapy Precautions Shoulder Precautions Sling,PROM,Internal Rotation to Body,No External Rotation, No Abduction,Forward Flexion to 90 degrees,Pendulums Other Precautions per Dr. Tao: will be allowed to do pendulum exercises. They will be allowed to use a computer and eat with their hand in front of the body. They will be allowed to shower with the dressing in place Weight Bearing Status Weight Bearing Status Non-Weight Bearing Allowed Weight Bearing Amount (enter % LUE NWB or #) (%) Recommendations To Nursing Amount of Assist Needed Independent Discharge Recommendations PT Discharge Recommendations Home with Assistance, Outpatient PT Transportation Needs at Discharge Private Vehicle
--- NOTE | 2021-11-05 10:49 | PC.NURSE ---
Pt is dressed and ready for discharge home. Taxi has been called to transport him there. IV has been removed and belongings are packed up. Went over d/c instructions with Pt-discussed d/c meds, time of last dose, reviewed stroke education and the purpose of aspirin twice daily for 6 weeks to prevent a blood clot. Reviewed s/s of infection and when to call MD. Reviewed minimal use of left shoulder and using his sling, ice, and propping elbow with pillow for support. Pt denies further questions and was taken out to Taxi by SALES SERVICE ASSISTANT with all belongings.
== END 2021-11-05 10:52 | disposition home or self-care (01) ==
LOC: OR 08:00 → AC 08:04
PROVIDERS: Orthopaedic Surgery Foot and Ankle Surgery; Referring Provider Orthopaedic Surgery; Visit Provider Orthopaedic Surgery
PROC: (CPT 23472; principal; 2021-11-04 10:00)
DX: S46.012A Strain of muscle(s) and tendon(s) of the rotator cuff of left shoulder, initial encounter (principal); E11.9 Type 2 diabetes mellitus without complications; G47.33 Obstructive sleep apnea (adult) (pediatric); I10 Essential (primary) hypertension; F41.9 Anxiety disorder, unspecified; F32.9 Major depressive disorder, single episode, unspecified; E78.5 Hyperlipidemia, unspecified; Z79.84 Long term (current) use of oral hypoglycemic drugs; Z20.822 Contact with and (suspected) exposure to COVID-19
CPT/HCPCS: 23472; 36415; 64450; 73020; 82962; 85014; 85018; 87635; 97161; C1776; C9803; J0171; J0330; J0690; J1100; J1815; J2250; J2405; J2704; J3010